=== PATIENT | female | born 1940 | race Caucasian/White ===

== ENCOUNTER 2016-07-03 13:06 | Emergency (ER) | payer MEDICARE, OTHER ==
[~2016-07-03 13:06] MED LIST: ABILIFY2 M1 PO; ACIPHEX20 MG; AMBIEN5 M1 PO; ARTIFICIAL TEA3.5 G3 LEFT EYE; ASPIRIN EC81 MG PO; ASPIRIN81 MG PO; ATIVAN0.5 M1 PO; ATORVASTATIN CA20 M1 PO; AUGMENTIN 875-1 EAC2 PO; AVENTYL HCL25 MG PO; BENADRYL25 M3 PO; CALCIUM; CALCIUM 600 +1 EA10 PO; CALCIUM 600+D1 EAC2 PO; CELEBREX200 M1 PO; CENTURY SENIOR; CINNAMON500 M1 PO; CIPRO500 MG; DEPAKOTE ER500 M1 PO; FEROSUL325 MG PO; FLEXAMIN; FLONASE ALLERG9.9 ML; GLUCOSAMINE CH1 EAC8 PO; HYDROCHLOROTH12.5 M1 PO; HYDROCHLOROTH12.5 M3 PO; HYDROXYUREA PO; HYDROXYUREA500 M1 PO; KEFLEX500 M4 PO; KEPPRA250 M1 PO; KEPPRA250 MG PO; LIPITOR20 MG; LIPITOR20 MG PO; METRONIDAZOLE500 MG; MUCINEX600 M1 PO; MULTIVITAMINS1 EAC7 PO; NEO OP; NEOMYC-POLYM-D3.5 GM OP; NORCO 5-325 TA1 EACH PO; NORTRIPTYLINE H25 M1 PO; POLY OP; POTASSIUM GLUC500 MG PO; POTASSIUM GLUCONATE PO; POTASSIUM595 ( 99 ) PO; PREVACID30 M2 PO; PREVACID30 MG PO; SENTRY SENIOR1 EACH PO; VIBRAMYCIN100 M1 PO; VICODIN 5/500 T1 TAB PO; XANAX0.5 M1 PO; ZESTRIL40 M2 PO; ZOFRAN ODT4 MG PO; ZOLOFT50 M1 PO; ZOLPIDEM TARTRA10 MG PO; [UNRECOGNIZED DRUG - OTHER]; [UNRECOGNIZED DRUG - OTHER] LEFT EYE; [UNRECOGNIZED DRUG - OTHER] OP; [UNRECOGNIZED DRUG - OTHER] OP; [UNRECOGNIZED DRUG - OTHER] OP; [UNRECOGNIZED DRUG - OTHER] OP; [UNRECOGNIZED DRUG - REMARK]
[2016-07-03 18:19] LABS: BASO % 1.1 % (0-2); BASO ABSOLUTE COUNT 0.1 tho/cmm (0.0-0.2); EOS % 0.6 % (0-7); HCT-HEMATOCRIT 39.6 % (34.0-49.0); HGB-HEMOGLOBIN 13.4 gm/dl (12.0-15.5); IMMATURE GRANULOCYTES ABSOLUTE 0.01 tho/cmm (0-0.03); IMMATURE GRANULOCYTES PERCENT 0.2 % (0-0.3); LYMPH % 30.1 % (20-45); LYMPH ABSOLUTE COUNT 1.6 tho/cmm (0.8-4.5); MCH (MEAN CORPUSCULAR HGB) 37.2 pg (28.0-32.0); MCHC MEAN CORPUSCULAR HGB CONC 33.8 % (32.0-36.0); MEAN PLATELET VOLUME 10.8 cmc (9.4-12.4); MONO % 6.3 % (0-12); MONOCYTE ABSOLUTE COUNT 0.3 tho/cmm (0.0-1.2); NEUTROPHIL ABSOLUTE COUNT 3.3 tho/cmm (1.6-8.0); NEUTROPHIL-AUTOMATED 3.3 tho/cmm (1.6-8.0); NEUTROPHILS % 61.7 % (40-80); PLATELET COUNT 295 tho/cmm (150-450); RED CELL DISTRIBUTION WIDTH 14.6 % (12.4-16.4); WHITE BLOOD COUNT 5.4 tho/cmm (4.0-10.0)
[2016-07-03 18:33] LABS: ANION GAP 12 mmol/L (0-20); BLOOD UREA NITROGEN 8 mg/dl (6-24); CALCIUM 8.8 mg/dl (8.5-10.5); CARBON DIOXIDE-VENOUS 28 mmol/L (22-32); CHLORIDE 108 mmol/l (96-110); CREATININE 0.58 mg/dl (0.50-1.10); GLUCOSE 87 mg/dL (70-110); POTASSIUM 3.6 mmol/L (3.7-5.1); SODIUM 144 mmol/L (135-145); eGFR VALUE FOR BLACK >90 mL/Min
[2016-09-16] MEDS ORDERED: VITAMIN B-12250 MC2 PO (11:54)
[2016-09-16] MEDS ORDERED: ORAZINC220 M1 PO (11:55)
[2016-09-18] MEDS ORDERED: REMERON15 M1 PO (17:07)
[2016-09-18] MEDS ORDERED: ATIVAN0.5 M1 PO (17:08)
== END 2016-07-03 19:29 ==
LOC: EDMED 13:06
PROVIDERS: Emergency Medicine
DX: R51 Headache (principal); F41.9 Anxiety disorder, unspecified; F32.9 Major depressive disorder, single episode, unspecified
CPT/HCPCS: J2060

== ENCOUNTER 2016-08-26 12:02 | Emergency (ER) | payer MEDICARE, OTHER ==
[2016-08-26 15:02] LABS: BASO % 1.2 % (0-2); BASO ABSOLUTE COUNT 0.1 tho/cmm (0.0-0.2); EOS % 0.6 % (0-7); HCT-HEMATOCRIT 40.5 % (34.0-49.0); HGB-HEMOGLOBIN 13.4 gm/dl (12.0-15.5); IMMATURE GRANULOCYTES ABSOLUTE 0.01 tho/cmm (0-0.03); IMMATURE GRANULOCYTES PERCENT 0.2 % (0-0.3); LYMPH % 21.6 % (20-45); LYMPH ABSOLUTE COUNT 1.1 tho/cmm (0.8-4.5); MCH (MEAN CORPUSCULAR HGB) 37.3 pg (28.0-32.0); MCHC MEAN CORPUSCULAR HGB CONC 33.1 % (32.0-36.0); MCV (MEAN CELL VOLUME) 112.8 fl (82.0-96.0); MEAN PLATELET VOLUME 10.6 cmc (9.4-12.4); MONO % 5.6 % (0-12); MONOCYTE ABSOLUTE COUNT 0.3 tho/cmm (0.0-1.2); NEUTROPHIL ABSOLUTE COUNT 3.7 tho/cmm (1.6-8.0); NEUTROPHIL-AUTOMATED 3.7 tho/cmm (1.6-8.0); NEUTROPHILS % 70.8 % (40-80); PLATELET COUNT 346 tho/cmm (150-450); RED BLOOD COUNT 3.59 mil/cmm (4.00-5.20); RED CELL DISTRIBUTION WIDTH 12.8 % (12.4-16.4); WHITE BLOOD COUNT 5.2 tho/cmm (4.0-10.0)
[2016-08-26 15:08] LABS: INR 0.9 INR (0.9-1.1)
[2016-08-26 15:18] LABS: ALB/GLOB RATIO 1.1 (0.8-2.0); ALBUMIN 3.4 g/dl (3.5-5.0); ALKALINE PHOSPHATASE 78 U/L (33-138); ALT/SGPT 16 U/L (12-78); ANION GAP 11 mmol/L (0-20); AST/SGOT 13 U/L (10-40); BILIRUBIN,TOTAL 0.6 mg/dl (0-1.5); BLOOD UREA NITROGEN 12 mg/dl (6-24); CALCIUM 8.8 mg/dl (8.5-10.5); CARBON DIOXIDE-VENOUS 27 mmol/L (22-32); CHLORIDE 109 mmol/l (96-110); CREATINE PHOSPHOKINASE (CPK) 62 U/L (21-215); CREATININE 0.68 mg/dl (0.50-1.10); GLUCOSE 86 mg/dL (70-110); MAGNESIUM 2.5 mg/dl (1.8-2.6); POTASSIUM 4.1 mmol/L (3.7-5.1); SODIUM 143 mmol/L (135-145); eGFR VALUE FOR BLACK >90 mL/Min
[2016-09-16] MEDS ORDERED: VITAMIN B-12250 MC2 PO (11:54)
[2016-09-16] MEDS ORDERED: ORAZINC220 M1 PO (11:55)
[2016-09-18] MEDS ORDERED: REMERON15 M1 PO (17:07)
[2016-09-18] MEDS ORDERED: ATIVAN0.5 M1 PO (17:08)
== END 2016-08-26 16:00 ==
LOC: EDMED 12:02
PROVIDERS: Emergency Medicine
DX: R52 Pain, unspecified (principal); I10 Essential (primary) hypertension; F41.9 Anxiety disorder, unspecified; Z85.3 Personal history of malignant neoplasm of breast; Z90.710 Acquired absence of both cervix and uterus; Z90.10 Acquired absence of unspecified breast and nipple; Z79.899 Other long term (current) drug therapy; Z79.82 Long term (current) use of aspirin

== ENCOUNTER 2016-09-13 09:39 | Inpatient (IN) | payer MEDICARE, OTHER ==
[2016-09-13 10:05] LABS: BASO % 1.2 % (0-2); BASO ABSOLUTE COUNT 0.1 tho/cmm (0.0-0.2); EOS % 1.2 % (0-7); EOSINOPHIL ABSOLUTE COUNT 0.1 tho/cmm (0.0-0.7); HCT-HEMATOCRIT 40.2 % (34.0-49.0); HGB-HEMOGLOBIN 13.4 gm/dl (12.0-15.5); IMMATURE GRANULOCYTES ABSOLUTE 0.01 tho/cmm (0-0.03); IMMATURE GRANULOCYTES PERCENT 0.2 % (0-0.3); LYMPH % 23.3 % (20-45); MCH (MEAN CORPUSCULAR HGB) 37.6 pg (28.0-32.0); MCHC MEAN CORPUSCULAR HGB CONC 33.3 % (32.0-36.0); MCV (MEAN CELL VOLUME) 112.9 fl (82.0-96.0); MEAN PLATELET VOLUME 10.8 cmc (9.4-12.4); MONO % 5.3 % (0-12); MONOCYTE ABSOLUTE COUNT 0.2 tho/cmm (0.0-1.2); NEUTROPHILS % 68.8 % (40-80); PLATELET COUNT 305 tho/cmm (150-450); RED BLOOD COUNT 3.56 mil/cmm (4.00-5.20); RED CELL DISTRIBUTION WIDTH 12.3 % (12.4-16.4); WHITE BLOOD COUNT 4.3 tho/cmm (4.0-10.0)
[2016-09-13 10:08] LABS: CARBON DIOXIDE-VENOUS 29 mmol/L (21-33); CREATININE 0.68 mg/dl (0.67-1.17); GLUCOSE 104 mg/dl (65-120); POTASSIUM 3.9 mmol/L (3.5-5.3); SODIUM 140 mmol/L (135-146); eGFR VALUE FOR BLACK >90 mL/Min
[2016-09-13 10:12] LABS: PROTHROMBIN TIME 11.3 SECONDS (9.0-13.6)
[2016-09-13] MEDS ORDERED: ATIVAN0.5 M1 PO (10:14)
[2016-09-13] MEDS ORDERED: [UNRECOGNIZED DRUG - OTHER] OP (10:17)
[2016-09-13] MEDS ORDERED: CILOXAN5 M1 OP (10:19)
[2016-09-13] MEDS ORDERED: PROZAC10 M1 PO (10:20)
[2016-09-13] MEDS ORDERED: DEPAKOTE ER500 M1 PO (10:21)
[2016-09-13 10:24] LABS: ALB/GLOB RATIO 1.1 (0.8-2.0); ALBUMIN 3.2 g/dl (3.5-5.0); ALKALINE PHOSPHATASE 69 U/L (33-138); ALT/SGPT 16 U/L (12-78); AST/SGOT 14 U/L (10-40); BILIRUBIN,TOTAL 0.5 mg/dl (0-1.5); BLOOD UREA NITROGEN 10 mg/dl (6-24); CALCIUM 8.4 mg/dl (8.5-10.5); CHLORIDE 109 mmol/l (96-110)
[2016-09-13 10:26] LABS: ANION GAP 6 mmol/L (0-20)
[2016-09-13 10:38] LABS: ESR-ERYTHROCYTE SED RATE 3 mm/hr (0-30)
[2016-09-13] MEDS ORDERED: MAGNESIUM250 M2 PO (10:56)
[2016-09-13 11:54] LABS: URINE BILIRUBIN NEGATIVE (NEG); URINE BLOOD NEGATIVE (NEG); URINE GLUCOSE (UA) NEGATIVE (NEG); URINE KETONE NEGATIVE (NEG); URINE LEUKOCYTE ESTERASE NEGATIVE (NEG); URINE NITRITE NEGATIVE (NEG); URINE PROTEIN NEGATIVE (NEG)
[2016-09-13 11:56] LABS: URINE COLOR PALE YELLOW
[2016-09-13 11:57] LABS: URINE APPEARANCE CLEAR
[2016-09-13 18:43] LABS: ALB/GLOB RATIO 1.2 (0.8-2.0); ALBUMIN 3.6 g/dl (3.5-5.0); ALKALINE PHOSPHATASE 81 U/L (33-138); ALT/SGPT 18 U/L (12-78); ANION GAP 12 mmol/L (0-20); AST/SGOT 14 U/L (10-40); BILIRUBIN,TOTAL 0.6 mg/dl (0-1.5); BLOOD UREA NITROGEN 8 mg/dl (6-24); CALCIUM 8.7 mg/dl (8.5-10.5); CARBON DIOXIDE-VENOUS 25 mmol/L (22-32); CHLORIDE 111 mmol/l (96-110); CREATINE PHOSPHOKINASE (CPK) 55 U/L (21-215); CREATININE 0.54 mg/dl (0.50-1.10); GLUCOSE 127 mg/dL (70-110); MAGNESIUM 2.1 mg/dl (1.8-2.6); POTASSIUM 3.9 mmol/L (3.7-5.1); SODIUM 144 mmol/L (135-145); eGFR VALUE FOR BLACK >90 mL/Min
[2016-09-13 18:46] LABS: C-REACTIVE PROTEIN <0.3 mg/dl (0-0.9)
[2016-09-13 19:05] LABS: TSH-THYROID STIMULATING HORM. 2.34 uIU/ml (0.40-3.80)
[2016-09-14] MEDS ORDERED: KEPPRA500 M3 PO (17:20)
[2016-09-16] MEDS ORDERED: VITAMIN B-12250 MC2 PO (11:54)
[2016-09-16] MEDS ORDERED: ORAZINC220 M1 PO (11:55)
[2016-09-18] MEDS ORDERED: REMERON15 M1 PO (17:07)
[2016-09-18] MEDS ORDERED: ATIVAN0.5 M1 PO (17:08)
== END 2016-09-14 18:47 | DRG 101 ==
LOC: EDMED 09:39 → EMR2 13:01 → 5EB 14:30
PROVIDERS: Emergency Medicine; Nurse Practitioner Acute Care; Psychiatry & Neurology Neurology; ADMIT Family Medicine
DX: G40.909 Epilepsy, unspecified, not intractable, without status epilepticus (principal); G93.89 Other specified disorders of brain; I10 Essential (primary) hypertension; R29.810 Facial weakness; R47.1 Dysarthria and anarthria; G25.2 Other specified forms of tremor; Z79.82 Long term (current) use of aspirin; G89.29 Other chronic pain; R35.0 Frequency of micturition; Z85.3 Personal history of malignant neoplasm of breast; Z88.8 Allergy status to other drugs, medicaments and biological substances; H53.462 Homonymous bilateral field defects, left side
CPT/HCPCS: A9577; C8929; G8979-GP-CI; G8980-GP-CH; J1650; J2060; J7030; Q9967